=== PATIENT | male | born 1935 | race Caucasian/White ===

== ENCOUNTER 2016-12-28 09:13 | Outpatient (CLI) | payer MEDICARE, OTHER | END 2016-12-28 09:14 | LOC: LAB 09:13 | PROVIDERS: ATTEND Internal Medicine | DX: E11.9 Type 2 diabetes mellitus without complications (principal); E55.9 Vitamin D deficiency, unspecified | CPT/HCPCS: 36415; 82608; 82746; 83036 ==

== ENCOUNTER 2018-01-18 12:33 | Outpatient (CLI) | payer MEDICARE, OTHER | END 2018-01-18 12:34 | LOC: LAB 12:33 | PROVIDERS: ATTEND Internal Medicine | DX: E11.9 Type 2 diabetes mellitus without complications (principal) | CPT/HCPCS: 36415; 83036 ==

== ENCOUNTER 2018-06-27 11:42 | Outpatient (CLI) | payer MEDICARE, OTHER | END 2018-06-27 11:43 | LOC: LAB 11:42 | PROVIDERS: ATTEND Internal Medicine | DX: E11.9 Type 2 diabetes mellitus without complications (principal) | CPT/HCPCS: 36415; 83036 ==

== ENCOUNTER 2018-12-02 12:25 | Outpatient (CLI) | payer MEDICARE, OTHER ==
[2018-12-02 12:52] LABS: MEAN CORPUSCULAR HEMOGLOBIN 30.1 pg (28.0-34.0)
== END 2018-12-02 12:26 ==
LOC: LAB 12:25
PROVIDERS: ATTEND Internal Medicine
DX: G47.33 Obstructive sleep apnea (adult) (pediatric) (principal)
CPT/HCPCS: 36415; 85027

== ENCOUNTER 2019-01-16 13:22 | Outpatient (CLI) | payer MEDICARE, OTHER ==
[2019-01-16 13:36] LABS: BASOPHILS % 0.5 (0.0-1.5); EOSINOPHILS % 1.5 % (0.0-6.8); MEAN CORPUSCULAR HEMOGLOBIN 27.5 pg (28.0-34.0); MONOCYTES % 8.3 % (0.0-11.0); NEUTROPHILS # 4.6 # k/uL (1.4-7.7)
== END 2019-01-16 13:24 ==
LOC: LAB 13:22
PROVIDERS: ATTEND Internal Medicine
DX: I10 Essential (primary) hypertension (principal); I87.2 Venous insufficiency (chronic) (peripheral); I73.9 Peripheral vascular disease, unspecified
CPT/HCPCS: 36415; 85025

== ENCOUNTER 2019-01-29 09:57 | Outpatient (CLI) | payer MEDICARE, OTHER ==
[2019-01-29 10:30] LABS: MEAN CORPUSCULAR HEMOGLOBIN 27.6 pg (28.0-34.0)
[2019-01-29 10:42] LABS: eGFR (Non-African) 59
== END 2019-01-29 10:00 ==
LOC: LAB 09:57
PROVIDERS: ATTEND Internal Medicine Cardiovascular Disease
DX: I10 Essential (primary) hypertension (principal); I25.10 Atherosclerotic heart disease of native coronary artery without angina pectoris; E78.49 Other hyperlipidemia
CPT/HCPCS: 36415; 80053; 80061; 85027

== ENCOUNTER 2019-02-25 11:59 | Outpatient (CLI) | payer MEDICARE, OTHER ==
[2019-02-25 12:31] LABS: BASOPHILS % 0.7 (0.0-1.5); EOSINOPHILS % 1.7 % (0.0-6.8); MEAN CORPUSCULAR HEMOGLOBIN 28.9 pg (28.0-34.0)
== END 2019-02-25 12:01 ==
LOC: LAB 11:59
PROVIDERS: ATTEND Internal Medicine
DX: I10 Essential (primary) hypertension (principal); I87.2 Venous insufficiency (chronic) (peripheral); I73.9 Peripheral vascular disease, unspecified
CPT/HCPCS: 36415; 85025

== ENCOUNTER 2019-06-13 10:02 | Outpatient (CLI) | payer MEDICARE, OTHER ==
[2019-06-13 10:13] LABS: BASOPHILS % 0.4 % (0.0-1.5); NEUTROPHILS # 5.1 # k/uL (1.4-7.7)
== END 2019-06-13 10:04 ==
LOC: LAB 10:02
PROVIDERS: ATTEND Internal Medicine
DX: I10 Essential (primary) hypertension (principal); I87.2 Venous insufficiency (chronic) (peripheral); I73.9 Peripheral vascular disease, unspecified
CPT/HCPCS: 36415; 83036; 83540; 84445; 85025

== ENCOUNTER 2019-07-02 10:20 | Outpatient (CLI) | payer MEDICARE, OTHER ==
[2019-07-02 11:14] LABS: APPEARANCE,URINE CLEAR (CLEAR); COLOR,URINE YELLOW (YELLOW); OCCULT BLOOD,URINE NEGATIVE (NEGATIVE); PH URINE 5.5 (5.0 - 8.0)
== END 2019-07-02 10:23 ==
LOC: LAB 10:20
PROVIDERS: ATTEND Internal Medicine
DX: M54.5 Low back pain (principal)
CPT/HCPCS: 36415; 81002

== ENCOUNTER 2019-08-22 12:59 | Outpatient (CLI) | payer MEDICARE, OTHER ==
[2019-08-22 13:22] LABS: APPEARANCE,URINE CLEAR (CLEAR); COLOR,URINE YELLOW (YELLOW); OCCULT BLOOD,URINE NEGATIVE (NEGATIVE); PH URINE 5.5 (5.0 - 8.0); UROBILINOGEN URINE 0.2 Eu (0.2-1.0)
== END 2019-08-22 13:03 ==
LOC: LAB 12:59
PROVIDERS: ATTEND Internal Medicine
DX: B99.9 Unspecified infectious disease (principal)
CPT/HCPCS: 36415; 81002; 87040

== ENCOUNTER 2019-09-04 14:45 | Outpatient (CLI) | payer MEDICARE, OTHER ==
[2019-09-12 07:54] LABS: BASOPHILS % 0.4 % (0.0-1.5); BASOPHILS % 1 % (0-2); HYPOCHROMASIA 1+ (NEGATIVE); NEUTROPHILS # 5.5 # k/uL (1.4-7.7); OVALOCYTES 2+ (NEGATIVE); SEGMENTED NEUTROPHILS % 64 % (39-79)
[2019-09-12 07:55] LABS: eGFR (Non-African) > 60
== END 2019-09-04 14:50 ==
LOC: LAB 14:45
PROVIDERS: ATTEND Internal Medicine
DX: I10 Essential (primary) hypertension (principal); I48.91 Unspecified atrial fibrillation; G47.33 Obstructive sleep apnea (adult) (pediatric)
CPT/HCPCS: 36415; 80053; 85025